=== PATIENT | male | born 1945 | race Caucasian/White ===

== ENCOUNTER → 2016-12-13 | Outpatient (CLI) | payer OTHER | END | disposition home or self-care (01) | LOC: PCVCCLINIC 16:44 | PROVIDERS: ATTEND Internal Medicine Cardiovascular Disease | DX: I25.10 Atherosclerotic heart disease of native coronary artery without angina pectoris (principal); I10 Essential (primary) hypertension; E78.00 Pure hypercholesterolemia, unspecified; I25.5 Ischemic cardiomyopathy; I25.2 Old myocardial infarction; I45.10 Unspecified right bundle-branch block; Z79.899 Other long term (current) drug therapy; Z88.0 Allergy status to penicillin | CPT/HCPCS: 80061; 93005; G0463 ==

== ENCOUNTER → 2017-09-15 | Outpatient (CLI) | payer OTHER | END | disposition home or self-care (01) | LOC: PCVCCLINIC 13:00 | DX: I10 Essential (primary) hypertension (principal); I25.5 Ischemic cardiomyopathy; E78.00 Pure hypercholesterolemia, unspecified; M19.90 Unspecified osteoarthritis, unspecified site; R94.31 Abnormal electrocardiogram [ECG] [EKG]; Z82.49 Family history of ischemic heart disease and other diseases of the circulatory system; Z79.899 Other long term (current) drug therapy; Z88.0 Allergy status to penicillin | CPT/HCPCS: 80061; 93005; G0463 ==

== ENCOUNTER → 2018-05-15 | Outpatient (CLI) | payer OTHER | END | disposition home or self-care (01) | LOC: PCVCCLINIC 13:32 | PROVIDERS: ATTEND Internal Medicine Cardiovascular Disease | DX: I25.10 Atherosclerotic heart disease of native coronary artery without angina pectoris (principal); I45.10 Unspecified right bundle-branch block; I25.5 Ischemic cardiomyopathy; I10 Essential (primary) hypertension; F10.10 Alcohol abuse, uncomplicated; E78.00 Pure hypercholesterolemia, unspecified; R94.31 Abnormal electrocardiogram [ECG] [EKG]; Z88.0 Allergy status to penicillin; Z88.8 Allergy status to other drugs, medicaments and biological substances; Z88.2 Allergy status to sulfonamides; Z79.899 Other long term (current) drug therapy | CPT/HCPCS: 80061; 93005; G0463 ==

== ENCOUNTER → 2018-09-08 | Outpatient (CLI) | payer OTHER ==
--- NOTE | 2018-09-08 17:05 | PCVCIMAG ---
APPROVED REPORT Study performed: 09/08/2018 14:13:33 Exam: Stress Echocardiogram Indication: CAD s/p RI, ischemic cardiomyopathy, HTN, RBBB Patient Location: Echo lab Stress Nurse: Nancy Mackenzie RN Status: routine Ht: 5 ft 7 in HR: 74 bpm BP: 132/80 mmHg Rhythm: NSR Procedure The patient underwent an Exercise Stress Test using the Efraín Protocol. Blood pressure, heart rate, and EKG were monitored. An Echocardiogram was performed by die cast technician in four stages in quad fashion. At peak stress, four selected images were obtained and placed side by side with resting images for comparison. Stress Test Details Stress Test: Exercise stress testing was performed using a Efraín protocol. HR Resting HR: 74 bpmMax Heart Rate (APMHR): 146 bpm Max HR Achieved: 150 bpmTarget HR (85% APMHR): 124 bpm % of APMHR: 102 Recovery HR: 96 bpm HR response to stress: Normal HR response to stress BP Resting BP: 132/80 mmHg Max BP: 160/80 mmHg Recovery BP: 144/70 mmHg BP response to stress: Normal blood pressure response to stress. ECG Resting ECG: Sinus Rhythm Stress ECG: Sinus Rhythm ST Change: Nonspecific ST abnormalities due to history of RI Arrhythmia: occasional PVC Recovery ECG: Sinus Rhythm Recovery ST Change: nonspecific ST changes Recovery Arrhythmia: None Clinical Reason for Termination: Maximal effort Stress Symptoms: Dyspnea Exercise duration: 8 min 10 sec Highest Stage Achieved: Stage 3: 3.4 mph at 14% grade. Exercise capacity: 10.1 METs Overall Exercise Capacity for Age: Normal Scale: Active Angina Score: None Pre-Stress Echo The resting Echocardiogram showed abnormal left ventricular contractility with an estimated Ejection Fraction of about 40-45%. Fixed distal septal and apical akinesis due to history of RI. Post-Stress Echo The stress Echocardiogram showed abnormal left ventricular contractility with an estimated Ejection Fraction of about 50%. Fixed distal septal and apical akinesis due to history of RI. No new RWMA. Clinical No clinical or ECG evidence for ischemia. Conclusion Clinical Response: Non-ischemic Exercise Capacity: Average Stress ECG Response: Equivocal Stress Echo Images: Non-ischemic The left ventricle is normal in size and wall thickness in both the rest and stress images. Mild aortic insufficiency and upper limits of normal aorta 3.8 cm. Other Information Study Quality: Adequate <Conclusion> The left ventricle is normal in size and wall thickness in both the rest and stress images. Mild aortic insufficiency and upper limits of normal aorta 3.8 cm.
== END | disposition home or self-care (01) ==
LOC: PCVCIMAG 14:17
PROVIDERS: ATTEND Internal Medicine Cardiovascular Disease
DX: I25.10 Atherosclerotic heart disease of native coronary artery without angina pectoris (principal); I10 Essential (primary) hypertension; I25.5 Ischemic cardiomyopathy; I45.10 Unspecified right bundle-branch block; I25.2 Old myocardial infarction
CPT/HCPCS: 93325; 93351

== ENCOUNTER → 2019-04-13 | Outpatient (CLI) | payer OTHER | END | disposition home or self-care (01) | LOC: PCVCCLINIC 14:59 | PROVIDERS: ATTEND Internal Medicine Cardiovascular Disease | DX: I25.10 Atherosclerotic heart disease of native coronary artery without angina pectoris (principal); I25.5 Ischemic cardiomyopathy; I45.10 Unspecified right bundle-branch block; E78.1 Pure hyperglyceridemia; E78.00 Pure hypercholesterolemia, unspecified; I10 Essential (primary) hypertension; Z82.49 Family history of ischemic heart disease and other diseases of the circulatory system; Z88.0 Allergy status to penicillin; Z88.2 Allergy status to sulfonamides | CPT/HCPCS: 36415; 80061; 93005; G0463 ==